=== PATIENT | female | born 2000 | race African-American/Black ===

== ENCOUNTER 2018-01-07 18:53 | Emergency (ER) | payer OTHER ==
[2018-01-07 19:48] LABS: CONTROL LINE UCG INT CTR LINE PRESENT; URINE PREG TEST POSITIVE (NEGATIVE)
[2018-01-07 19:59] LABS: KETONE, URINE AUTO RFX TRACE mg/dL (NEGATIVE); LEUKOCYTE ESTERASE UR AUTO RFX 3+ (NEGATIVE); MUCUS, URINE RFX SMALL (NEGATIVE); NITRITE, URINE AUTO RFX NEGATIVE (NEGATIVE); RBC, URINE AUTO RFX 5 /HPF (0-3); SPECIFIC GRAVITY UR AUTO RFX 1.024 (1.002-1.035); SQUAM EPITHELIAL CELL UR AURFX 3 /HPF (0-6); WBC, URINE AUTO RFX 111 /HPF (0-3)
[2018-01-07] MEDS: NITROFURANTOIN (MACROBID) 100 MG CAP PO (20:24)
[2018-01-07] MEDS: METOCLOPRAMIDE 10 MG TAB PO (20:24)
== END 2018-01-07 20:30 | disposition home or self-care (01) ==
LOC: M ED 18:53
DX: N39.0 Urinary tract infection, site not specified (principal); Z32.01 Encounter for pregnancy test, result positive
CPT/HCPCS: 84703

== ENCOUNTER 2018-07-24 00:11 | Inpatient (IN) | payer OTHER ==
[2018-07-24] MEDS: LACTATED RINGER'S 1000 ML IV (03:04)
[2018-07-24] MEDS: LR 1,000 ML IV ×2 (03:04→16:15)
[2018-07-24 03:12] LABS: HEMATOCRIT 38.3 % (36.0-47.0); HEMOGLOBIN 12.2 g/dl (12.0-15.5); MEAN CORPUSCULAR HEMOGLOBIN 28.3 pg (27.0-33.0); MEAN CORPUSCULAR HGB CONC 31.9 g/dl (32.0-36.5); MEAN CORPUSCULAR VOLUME 88.9 fl (80.0-96.0); PLATELET COUNT, AUTOMATED 319 10^3/uL (150-450); RED BLOOD COUNT 4.31 10^6/uL (4.00-5.40); RED CELL DISTRIBUTION WIDTH 13.5 % (11.5-14.5); WHITE BLOOD COUNT 14.5 10^3/uL (4.0-10.0)
[2018-07-24] MEDS: AMPICILLIN SOD 2 GM in APPROPRIATE DILUENT 20 ML IV (03:20)
[2018-07-24] MEDS ORDERED: OXYTOCIN DRIP 30 UNITS in APPROPRIATE DILUENT 1 EA IV (04:15)
[2018-07-24] MEDS: AMPICILLIN SOD 1 GM in APPROPRIATE DILUENT 10 ML IV ×2 (07:48→12:53)
[2018-07-24] MEDS ORDERED: FENTANYL 2MCG/ML ROPIVACAINE 0.2% IN 0.9% NACL 200ML IVBAG As Ordered (11:11)
[2018-07-24] MEDS ORDERED: diphenhydrAMINE INJ 50MG/ML VIAL (J1200) IV (12:45)
[2018-07-24] MEDS ORDERED: ONDANSETRON 4MG/2ML VIAL (J2405) IV ×2 (12:45→16:15)
[2018-07-24] MEDS ORDERED: FENTANYL/ROPIVACAINE/NACL BAG 200 ML EPIDURAL (12:45)
[2018-07-24] MEDS ORDERED: REFRIGERATOR IV KEYS XX (12:45)
[2018-07-24] MEDS ORDERED: LACTATED RINGER'S 1000 ML IV (12:45)
[2018-07-24] MEDS ORDERED: EPIDURAL COMMENT XX (12:45)
[2018-07-24] MEDS ORDERED: NALOXONE INJ 0.4 MG/1 ML VIAL (J2310) IV (12:45)
[2018-07-24] MEDS ORDERED: EPIDURAL/PCA KEYS XX (12:45)
[2018-07-24] MEDS: ePHEDrine SULFATE 25 MG/5 ML(5MG/ML) SYRINGE IV (13:11)
[2018-07-24] MEDS ORDERED: ceFAZolin 2 GM/D5W 50 ML IV BAG (J0690 PER 500MG) As Ordered (14:14)
[2018-07-24] MEDS ORDERED: BICITRA 30ML SOLN UDC As Ordered (14:14)
[2018-07-24] MEDS ORDERED: OXYTOCIN INJ 10 UNITS/ML VIAL (J2590) As Ordered ×5 (14:18→15:18)
[2018-07-24] MEDS ORDERED: LIDOCAINE 2% W/EPIN INJ 20ML **PRES FREE As Ordered ×2 (14:18→14:22)
[2018-07-24] MEDS ORDERED: ONDANSETRON 4MG/2ML VIAL (J2405) As Ordered (14:23)
[2018-07-24] MEDS ORDERED: dexameTHASONE 4 MG/ML 1ML VIAL (J1100) As Ordered (14:23)
[2018-07-24] MEDS ORDERED: MORPHINE PRES-FREE INJ 10 MG/10 ML VIAL (J2274) As Ordered (14:59)
[2018-07-24 15:21] LABS: CORD GAS ABE A -1.1; CORD GAS HCO3 A 27.1 MEQ/L; CORD GAS O2 SAT A 16.2 %; CORD GAS PCO2 A 58.1 mmHg; CORD GAS PH A 7.287 UNITS; CORD GAS SBC A 21.3 MEQ/L; CORD GAS TCO2 A 28.9 MEQ/L
[2018-07-24 15:22] LABS: CORD GAS HCO3 V 22.6 MEQ/L; CORD GAS O2 SAT V 61.7 %; CORD GAS PCO2 V 41.9 mmHg; CORD GAS PH V 7.349 UNITS; CORD GAS PO2 V 26.1 mmHg; CORD GAS TCO2 V 23.8 MEQ/L
[2018-07-24] MEDS ORDERED: METOCLOPRAMIDE INJ 10MG/2ML VIAL (J2765) IV ×2 (15:30→16:15)
[2018-07-24] MEDS: BICITRA 30ML SOLN UDC PO (15:30)
[2018-07-24] MEDS ORDERED: PERCOCET 5MG/325MG TAB PO (16:15)
[2018-07-24] MEDS ORDERED: fentaNYL 100 MCG/2 ML INJECTION (J3010) As Ordered (16:19)
[2018-07-24] MEDS: fentaNYL 100 MCG/2 ML INJECTION (J3010) IV ×3 (16:22→16:46)
[2018-07-24] MEDS: PERCOCET 5MG/325MG TAB PO (17:29)
[2018-07-24] MEDS: RHOGAM 300 MCG (1500 IU) INJ (J2790) IM (18:27)
[2018-07-24] MEDS: MEASLES,MUMPS,RUBELLA VACCINE INJ (MMR-II) (90707) SC (18:27)
[2018-07-24] MEDS: DOCUSATE SODIUM 100 MG CAP PO (21:00)
[2018-07-24] MEDS: KETOROLAC 30 MG/ML VIAL (J1885) IV (22:00)
[2018-07-25] MEDS: KETOROLAC 30 MG/ML VIAL (J1885) IV ×2 (03:58→09:59)
[2018-07-25 07:29] LABS: HEMATOCRIT 34.3 % (36.0-47.0); HEMOGLOBIN 11.2 g/dl (12.0-15.5); MEAN CORPUSCULAR HEMOGLOBIN 29.2 pg (27.0-33.0); MEAN CORPUSCULAR HGB CONC 32.7 g/dl (32.0-36.5); MEAN CORPUSCULAR VOLUME 89.3 fl (80.0-96.0); PLATELET COUNT, AUTOMATED 275 10^3/uL (150-450); RED BLOOD COUNT 3.84 10^6/uL (4.00-5.40); RED CELL DISTRIBUTION WIDTH 13.6 % (11.5-14.5); WHITE BLOOD COUNT 19.9 10^3/uL (4.0-10.0)
[2018-07-25] MEDS: DOCUSATE SODIUM 100 MG CAP PO ×2 (09:00→20:27)
[2018-07-25] MEDS: PRENATAL VITAMINS CHEWABLE TABLET PO (09:58)
[2018-07-25] MEDS: IBUPROFEN 800 MG TAB PO (18:07)
[2018-07-25] MEDS: PERCOCET 5MG/325MG TAB PO (21:20)
[2018-07-26] MEDS: IBUPROFEN 800 MG TAB PO ×2 (01:51→10:29)
[2018-07-26] MEDS: PRENATAL VITAMINS CHEWABLE TABLET PO (08:33)
[2018-07-26] MEDS: PERCOCET 5MG/325MG TAB PO (08:34)
[2018-07-26] MEDS: DOCUSATE SODIUM 100 MG CAP PO (08:35)
== END 2018-07-26 13:20 | disposition home or self-care (01) | DRG 766 ==
LOC: M LDO 00:11 → M LDI 02:32 → M OBS 17:02
PROVIDERS: Obstetrics & Gynecology
PROC: 10D00Z1 Extraction of Products of Conception, Low, Open Approach (ICD-10-PCS; principal; 2018-07-24 14:32)
DX: O76 Abnormality in fetal heart rate and rhythm complicating labor and delivery (principal); Z37.0 Single live birth; Z3A.40 40 weeks gestation of pregnancy; O48.0 Post-term pregnancy; O99.820 Streptococcus B carrier state complicating pregnancy

== ENCOUNTER 2019-01-09 11:12 | Emergency (ER) | payer OTHER ==
[~2019-01-09] VITALS: Ht 162.6 cm; Wt 85.5 kg
[2019-01-09 11:12] VITALS: BP 139/93
[~2019-01-09 11:12] MED LIST: COLA100C5 PO; IBUP-1114 PO; MACR100C43 PO; OXYC1TAB23 PO; PRENTAB9 PO; REGL10TA6 PO
[2019-01-09] MEDS ORDERED: AMOX500C PO (11:18)
[2019-01-09] MEDS ORDERED: ACET1TAB16 PO (11:32)
== END 2019-01-09 11:46 | disposition home or self-care (01) ==
LOC: M ED 11:12
DX: K08.89 Other specified disorders of teeth and supporting structures (principal); G89.18 Other acute postprocedural pain; F17.200 Nicotine dependence, unspecified, uncomplicated; Z79.2 Long term (current) use of antibiotics

== ENCOUNTER 2019-01-12 12:17 | Emergency (ER) | payer OTHER ==
[~2019-01-12] VITALS: Ht 162.6 cm; Wt 83.6 kg
[~2019-01-12 12:17] MED LIST changes: +ACET1TAB16 PO; +AMOX500C PO
[2019-01-12 13:02] VITALS: BP 143/92
[2019-01-12] MEDS ORDERED: MAGICMW SSP (13:20)
== END 2019-01-12 13:26 | disposition home or self-care (01) ==
LOC: M ED 12:17
DX: G89.18 Other acute postprocedural pain (principal); Z98.818 Other dental procedure status; F17.210 Nicotine dependence, cigarettes, uncomplicated

== ENCOUNTER 2019-02-18 21:27 | Emergency (ER) | payer OTHER ==
[2019-02-18 21:27] VITALS: BP 139/73
[~2019-02-18 21:27] MED LIST changes: +MAGICMW SSP
[2019-02-18] MEDS ORDERED: ZOLO25TA PO (21:39)
[2019-02-18] MEDS ORDERED: PENI500T PO (21:56)
[2019-02-18] MEDS ORDERED: PENICILLIN V POTASSIUM 500 MG TAB PO ONE (22:00)
== END 2019-02-18 22:03 | disposition home or self-care (01) ==
LOC: M ED 21:27
DX: J02.0 Streptococcal pharyngitis (principal); Z79.899 Other long term (current) drug therapy; F17.210 Nicotine dependence, cigarettes, uncomplicated

== ENCOUNTER 2019-04-26 05:45 | Emergency (ER) | payer OTHER ==
[~2019-04-26] VITALS: Ht 162.6 cm; Wt 77.3 kg
[2019-04-26 05:45] VITALS: BP 140/69
[~2019-04-26 05:45] MED LIST changes: +PENI500T PO; +ZOLO25TA PO
[2019-04-26] MEDS ORDERED: HYDR-3363 PO (05:48)
[2019-04-26] MEDS ORDERED: NAPR-837 PO (06:20)
== END 2019-04-26 06:24 | disposition home or self-care (01) ==
LOC: M ED 05:45
DX: R59.0 Localized enlarged lymph nodes (principal); F32.9 Major depressive disorder, single episode, unspecified; F94.1 Reactive attachment disorder of childhood; F17.200 Nicotine dependence, unspecified, uncomplicated; Z79.899 Other long term (current) drug therapy

== ENCOUNTER 2019-08-12 23:59 | Inpatient (IN) | payer OTHER ==
[~2019-08-12] VITALS: Ht 162.6 cm; Wt 82.3 kg
[~2019-08-12 23:59] MED LIST changes: +HYDR-3363 PO; +NAPR-837 PO
[2019-08-13 02:54] LABS: AMPHETAMINES LEVEL URINE NEGATIVE (NEGATIVE); BARBITURATES URINE NEGATIVE (NEGATIVE); BENZODIAZEPINES URINE NEGATIVE (NEGATIVE); CANNABINOIDS URINE POSITIVE (NEGATIVE); COCAINE METABOLITE URINE NEGATIVE (NEGATIVE); METHADONE URINE NEGATIVE (NEGATIVE); OPIATES URINE NEGATIVE (NEGATIVE); PHENCYCLIDINE URINE NEGATIVE (NEGATIVE)
[2019-08-13 03:27] LABS: HEMATOCRIT 41.1 % (36.0-47.0); HEMOGLOBIN 13.8 g/dl (12.0-15.5); MEAN CORPUSCULAR HGB CONC 33.6 g/dl (32.0-36.5); MEAN CORPUSCULAR VOLUME 92.4 fl (80.0-96.0); PLATELET COUNT, AUTOMATED 315 10^3/uL (150-450); RED BLOOD COUNT 4.45 10^6/uL (4.00-5.40); WHITE BLOOD COUNT 11.4 10^3/uL (4.0-10.0)
[2019-08-13 04:16] LABS: ACETAMINOPHEN LEVEL < 2.0 UG/ML (10.0-30.0); ALBUMIN 3.8 GM/DL (3.2-5.2); ALT/SGPT 20 U/L (12-78); BILIRUBIN,DIRECT < 0.1 MG/DL (0.0-0.2); BILIRUBIN,TOTAL 0.2 MG/DL (0.2-1.0); BLOOD UREA NITROGEN 9 MG/DL (7-18); CALCIUM LEVEL 8.8 MG/DL (8.5-10.1); CARBON DIOXIDE LEVEL 21 MEQ/L (21-32); CHLORIDE LEVEL 106 MEQ/L (98-107); CREATININE FOR GFR 0.82 MG/DL (0.55-1.30); ETHYL ALCOHOL (ETHANOL) < 0.003 % (0.000-0.010); GLUCOSE, FASTING 79 MG/DL (70-100); HCG, SERUM QUANTITATIVE 19530 MIU/ML; POTASSIUM SERUM 4.2 MEQ/L (3.5-5.1); SALICYLATE LEVEL < 1.7 MG/DL (5.0-30.0); SODIUM LEVEL 138 MEQ/L (136-145); TOTAL PROTEIN 7.3 GM/DL (6.4-8.2)
[2019-08-13] MEDS ORDERED: OLANZapine INTRAMUSCULAR 10 MG VIAL (S0166) As Ordered ONE (04:26)
[2019-08-13] MEDS ORDERED: LORazepam 2 MG/ML VIAL (J2060) IM ONE (04:30)
[2019-08-13] MEDS ORDERED: OLANZapine INTRAMUSCULAR 10 MG VIAL (S0166) IM ONE (04:30)
[2019-08-13] MEDS ORDERED: OLANZapine ORAL DISINTEGRATING TAB 5MG PO ONE (04:30)
[2019-08-13] MEDS ORDERED: diphenhydrAMINE INJ 50MG/ML VIAL (J1200) IM ONE (04:30)
[2019-08-13] MEDS ORDERED: MOM 30ML SUSPENSION UDC PO PRN (13:30)
[2019-08-13] MEDS ORDERED: ACETAMINOPHEN TAB 650MG DOSE (2X325MG) PO PRN (13:30)
[2019-08-13] MEDS ORDERED: MAALOX 30 ML SUSP *UDC PO PRN (13:30)
[2019-08-13] MEDS ORDERED: traZODone 50 MG TAB PO PRN (13:30)
[2019-08-13 15:00] VITALS: BP 110/68
[2019-08-14 06:25] VITALS: BP 121/54
--- NOTE | 2019-08-14 08:49 | HPE ---
DATE OF ADMISSION: 08/13/2019 Please refer to the psychiatric history and evaluation for further details on this admission. This examination and history intended for medical issues which may need treatment, followup or consultation on this 18-year-old female. ALLERGIES: No known allergies. PRIMARY CARE PROVIDER: Hermann. SOCIAL HISTORY: She is . She is in [employer]. Her is an active duty soldier currently stationed at [place]. She has one son, age 11 year old. ETOH - none. Smokes - she quit a month ago. Recreational drug use - none. PAST MEDICAL HISTORY: 1. Depression. 2. She is currently 6 weeks and 4 days . She has an appointment with [facility], certified nurse rat poisoner. PAST SURGICAL HISTORY: section. HOME MEDICATIONS: - vitamin she was to start FAMILY HISTORY: Mother is alive and well. Father is alive and well. LABORATORY STUDIES: White count 11.4, hemoglobin 13.8, hematocrit 31.9, platelets 315. Electrolytes are normal. BUN 9, creatinine 0.82. TSH 1.99. Beta hCG 01775. Toxicology was positive for cannabinoids, though she denies using any recreational drugs. REVIEW OF SYSTEMS: 10 systems review was done and was unremarkable other than her current . PHYSICAL EXAMINATION: 18-year-old cooperative female in no acute distress. Blood pressure 128/64. Pulse 88. Respirations 18. Temperature 98.5. Height 64 inches. Weight 82.3 kg. BMI 31.1. The patient is alert and oriented times three. Pupils equal and react to light. Extraocular movements intact. Cornea and sclera clear. Conjunctiva normal. No facial asymmetry. Pharynx, tongue and gums pink and moist. Tongue is midline. Neck is supple, without lymphadenopathy. No thyromegaly. No goiter. Chest clear to auscultation, without wheeze or retraction. Heart is regular. Abdomen benign. Bowel sounds positive. Genitourinary ()/Rectal: Not done. Extremities show no cyanosis, clubbing or edema. Peripheral pulses equal and palpable bilaterally. Skin is warm and dry. IMPRESSION AND PLAN: 1. Psychiatric. Plan per psychiatry. 2. 6 weeks 4 days . Will need to see her OB. vitamin one daily. 3. No other acute medical issues.
[2019-08-14] MEDS: PRENATAL VITAMINS CHEWABLE TABLET PO SCH (09:42)
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
[2019-08-14] MEDS ORDERED: diphenhydrAMINE 25 MG CAP PO PRN (12:15)
[2019-08-14 15:55] VITALS: BP 123/59
[2019-08-15 06:13] VITALS: BP 133/67
[2019-08-15] MEDS: PRENATAL VITAMINS CHEWABLE TABLET PO SCH (09:12)
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
[2019-08-15 15:52] VITALS: BP 115/57
[2019-08-16 06:02] VITALS: BP 98/52
[2019-08-16] MEDS: PRENATAL VITAMINS CHEWABLE TABLET PO SCH (09:51)
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
[2019-08-16] MEDS ORDERED: PRENCHW PO (10:18)
== END 2019-08-16 12:30 | disposition home or self-care (01) | DRG 566 ==
LOC: M ED 23:59 → M ED INP 08-13 13:26 → M PSY 08-13 14:25
PROVIDERS: ADMIT Psychiatry & Neurology Addiction Medicine; ATTEND Psychiatry & Neurology Addiction Medicine
DX: O99.341 Other mental disorders complicating pregnancy, first trimester (principal); R45.851 Suicidal ideations; F43.21 Adjustment disorder with depressed mood; F43.8 Other reactions to severe stress; Z87.891 Personal history of nicotine dependence; Z3A.01 Less than 8 weeks gestation of pregnancy

== ENCOUNTER 2020-08-27 23:18 | Emergency (ER) | payer OTHER ==
[~2020-08-27] VITALS: Ht 162.6 cm; Wt 71.2 kg
[~2020-08-27 23:18] MED LIST changes: +PRENCHW PO
[2020-08-28] MEDS ORDERED: OLOPATADINE 0.1% OPHTH SOL 5ML(PATANOL) OU STA (00:03)
[2020-08-28] MEDS ORDERED: ALL10TAB2 PO (00:57)
[2020-08-28] MEDS ORDERED: OLOP0.1D OP (00:57)
[2020-08-28 01:14] VITALS: BP 122/68
== END 2020-08-28 01:15 | disposition home or self-care (01) ==
LOC: M ED 23:18
DX: R10.2 Pelvic and perineal pain (principal); H10.12 Acute atopic conjunctivitis, left eye; Z79.899 Other long term (current) drug therapy; F17.210 Nicotine dependence, cigarettes, uncomplicated

== ENCOUNTER → 2021-04-04 | Outpatient (CLI) | payer OTHER ==
[~2021-04-04] MED LIST changes: +ALL10TAB2 PO; +OLOP0.1D OP
== END ==
LOC: M OUTALCOH 07:44
PROVIDERS: ATTEND Psychiatry & Neurology Psychiatry
DX: Z03.89 Encounter for observation for other suspected diseases and conditions ruled out (principal)